=== PATIENT | male | born 1940 | race Two or more races ===

== ENCOUNTER 2016-09-22 16:10 | Emergency (ER) | payer MEDICARE, OTHER ==
[~2016-09-22] VITALS: Ht 177.8 cm; Wt 97.5 kg
[2016-09-22 16:35] VITALS: BP 212/83
[2016-09-22 17:14] LABS: BASOPHILS % (AUTO) 1.8 % (0.0-2.0); EOSINOPHILS % (AUTO) 5.9 % (0.0-3.0); LYMPHOCYTES % (AUTO) 27.9 % (20.0-45.0); MEAN CORPUSCULAR HEMOGLOBIN 31.4 PG (27.0-31.0); MEAN CORPUSCULAR HGB CONC 33.5 G/DL (32.0-36.0); MEAN CORPUSCULAR VOLUME 94 FL (80-99); MEAN PLATELET VOLUME 6.9 FL (6.5-10.1); MONOCYTES % (AUTO) 6.1 % (1.0-10.0); NEUTROPHILS % (AUTO) 58.3 % (45.0-75.0); PLATELET COUNT 240 K/UL (150-450); RED BLOOD COUNT 4.46 M/UL (4.70-6.10); RED CELL DISTRIBUTION WIDTH 12.2 % (11.6-14.8); WHITE BLOOD COUNT 9.6 K/UL (4.8-10.8)
[2016-09-22 17:32] LABS: TROPONIN I < 0.30 ng/mL (<=0.30)
[2016-09-22 17:44] LABS: ALANINE AMINOTRANSFERASE 14 U/L (3-41); ALBUMIN/GLOBULIN RATIO 1.2 (1.0-2.7); ANION GAP 14 (5-15); ASPARTATE AMINO TRANSFERASE 21 U/L (5-40); CARBON DIOXIDE 27 mEQ/L (20-30); CHLORIDE 96 mEQ/L (98-107); CREATININE 2.1 mg/dL (0.7-1.2); HEMOLYSIS 84; POTASSIUM 4.9 mEQ/L (3.4-4.9); SODIUM 137 mEQ/L (135-145); TOTAL PROTEIN 7.3 g/dL (6.6-8.7)
[2016-09-22 17:57] LABS: CKMB 3.3 ng/mL (< 6.7)
[2016-09-22 18:10] VITALS: BP 178/66
--- NOTE | 2016-09-22 19:02 | Emergency Room Report ---
History of Present Illness General Chief Complaint: Hypertension Source: Patient Present Illness HPI 75-year-old male presents to ED for evaluation. Referred from PMD office. Patient is here complaining of dizziness and headache for many weeks now. Blood pressure is high. Patient also feels weak. Denies chest pain or shortness of breath. Denies fevers or chills. Denies nausea or vomiting. Patient notes history of hypertension and states that his blood pressure tends to be high despite medication. States he is compliant with his medications. No other aggravating or relieving factors. Denies any other specific symptoms Patient History Past Medical History: HTN Past Surgical History: none Pertinent Family History: none Social History: Denies: alcohol use, drug use, smoking Immunizations: UTD Reviewed Nursing Documentation: PMH: Agreed, PSxH: Agreed Nursing Documentation-PM Past Medical History: No History, Except For Hx Hypertension: Yes Review of Systems All Other Systems: negative except mentioned in HPI Physical Exam Vital Signs Date Time Temp Pulse Resp B/P Pulse Ox O2 Delivery O2 Flow Rate FiO2 09/22/ 16:25 99.0 65 18 205/85 98 Room Air Sp02 EP Interpretation: reviewed, normal General Appearance: no apparent distress, alert, GCS 15, non-toxic Head: normocephalic, atraumatic Eyes: bilateral eye PERRL, bilateral eye normal inspection ENT: hearing grossly normal, normal pharynx, no angioedema, normal voice Neck: full range of motion, supple/symm/no masses Respiratory: chest non-tender, lungs clear, normal breath sounds, speaking full sentences Cardiovascular #1: regular rate, rhythm, no edema Cardiovascular #2: 2+ carotid (R), 2+ carotid (L), 2+ radial (R), 2+ radial (L) , 2+ dorsalis pedis (R), 2+ dorsalis pedis (L) Gastrointestinal: normal bowel sounds, non tender, soft, non-distended, no guarding, no rebound Rectal: deferred Genitourinary: normal inspection, no CVA tenderness Musculoskeletal: back normal, gait/station normal, normal range of motion, non- tender Neurologic: alert, oriented x3, responsive, motor strength/tone normal, sensory intact, speech normal Psychiatric: judgement/insight normal, memory normal, mood/affect normal, no suicidal/homicidal ideation Reflexes: 3+ bicep (R), 3+ bicep (L), 3+ tricep (R), 3+ tricep (L), 3+ knee (R) , 3+ knee (L) Skin: normal color, no rash, warm/dry, well hydrated Lymphatic: no adenopathy Medical Decision Making Diagnostic Impression: Primary Impression: Hypertension Qualified Codes: I10 - Essential (primary) hypertension Additional Impression: ARF (acute renal failure) Qualified Codes: N17.9 - Acute kidney failure, unspecified ER Course Hospital Course 75-year-old male presents ED complaining of dizziness, elevated BP Differential diagnoses include: MT/unstable angina, CVA/TIA, hypertensive urgency Clinical course Patient placed on stretcher. 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 After initial history and physical I ordered labs, EKG, chest x-ray, CT Head labs reviewed- no leukocytosis, hemoglobin/hematocrit stable, Cr 2.1, troponins negative. EKG - NSR, LVH, no acute changes Chest x-ray- unremarkable CT head negative Patient states he wishes to go home. Understands the risks of leaving. Patient has competency to make his own decisions. Signed AMA form. I. I feel this is a highly complex case requiring extensive working including EKG/Rhythm strip, Xray/CT/US, Blood/urine lab work, repeat exams while in ED, and administration of strong opiates/narcotics for pain control, admission to hospital or close patient follow up. Diagnosis - hypertensive urgency, ARF patient left AMA Labs Test 09/22/16 16:30 White Blood Count 9.6 K/UL (4.8-10.8) Red Blood Count 4.46 M/UL (4.70-6.10) Hemoglobin 14.0 G/DL (14.2-18.0) Hematocrit 41.8 % (42.0-52.0) Mean Corpuscular Volume 94 FL (80-99) Mean Corpuscular Hemoglobin 31.4 PG (27.0-31.0) Mean Corpuscular Hemoglobin Concent 33.5 G/DL (32.0-36.0) Red Cell Distribution Width 12.2 % (11.6-14.8) Platelet Count 240 K/UL (150-450) Mean Platelet Volume 6.9 FL (6.5-10.1) Neutrophils (%) (Auto) 58.3 % (45.0-75.0) Lymphocytes (%) (Auto) 27.9 % (20.0-45.0) Monocytes (%) (Auto) 6.1 % (1.0-10.0) Eosinophils (%) (Auto) 5.9 % (0.0-3.0) Basophils (%) (Auto) 1.8 % (0.0-2.0) Sodium Level 137 mEQ/L (135-145) Potassium Level 4.9 mEQ/L (3.4-4.9) Chloride Level 96 mEQ/L (98-107) Carbon Dioxide Level 27 mEQ/L (20-30) Anion Gap 14 (5-15) Blood Urea Nitrogen 22 mg/dL (7-23) Creatinine 2.1 mg/dL (0.7-1.2) Estimat Glomerular Filtration Rate mL/min (>60) Glucose Level 101 mg/dL (74-106) Calcium Level 9.0 mg/dL (8.6-10.2) Total Bilirubin 0.3 mg/dL (0.0-1.2) Aspartate Amino Transf (AST/SGOT) 21 U/L (5-40) Alanine Aminotransferase (ALT/SGPT) 14 U/L (3-41) Alkaline Phosphatase 74 U/L (40-129) Total Creatine Kinase 80 U/L (38-174) Creatine Kinase MB 3.3 ng/mL (< 6.7) Creatine Kinase MB Relative Index 4.1 Troponin I < 0.30 ng/mL (<=0.30) Total Protein 7.3 g/dL (6.6-8.7) Albumin 4.0 g/dL (3.5-5.2) Globulin 3.3 g/dL Albumin/Globulin Ratio 1.2 (1.0-2.7) EKG Diagnostic Results Rate: normal Rhythm: NSR ST Segments: other - LVH, twave inversions ASA given to the pt in ED: No Rhythm Strip Diag. Results EP Interpretation: yes Rhythm: NSR, no PVC's, no ectopy Chest X-Ray Diagnostic Results Chest X-Ray Ordered: Yes # of Views/Limited/Complete: 1 View Interpretation: no consolidation, no effusion, no pneumothorax, no acute cardiopulmonary disease Indication: Other - dizziness Impression: No acute disease Date Electronically Signed: Sep 22, 2016 Time Electronically Signed: 19:00 Interpreting ER Physician: Cas Garzon MD CT/MRI/US Diagnostic Results CT/MRI/US Diagnostic Results : Imaging Test Ordered: CT Head Impression no acute process Last Vital Signs Date Time Temp Pulse Resp B/P Pulse Ox O2 Delivery O2 Flow Rate FiO2 09/22/16 18:10 58 18 178/66 96 Room Air 09/22/16 16:35 98.5 Status: unchanged Disposition: AGAINST MEDICAL ADVICE Condition: Serious Referrals: NOT CHOSEN [facility]/,REFERRING (PCP) CAS GARZON M.D. Sep 22, 2016 19:02
--- NOTE | 2016-09-23 09:52 | Diagnostic Imaging Report ---
Indication: Shortness of breath, hypertension Technique: Single portable AP view of the chest. Findings: Comparison: None. Linear density left lung base. Right lung clear. Thoracic aorta mildly calcified and elongated. The bones and extra pulmonary soft tissues, remainder of the cardiomediastinal silhouette, pulmonary vasculature, and pleural surfaces are unremarkable. IMPRESSION: Minimal subsegmental atelectasis versus scarring left lung base Aortosclerosis otherwise negative.
== END 2016-09-22 18:10 | disposition left against medical advice (07) ==
LOC: EMR 17:02 → EDBEDREQ 17:47 → EMR 18:10
DX: I10 Essential (primary) hypertension (principal); N17.9 Acute kidney failure, unspecified; R51 Headache
CPT/HCPCS: 36415; 70450; 71010; 80053; 82550; 82553; 84484; 85025; 93005; 99284

== ENCOUNTER 2018-04-24 05:13 | Emergency (ER) | payer MEDICARE, OTHER ==
[~2018-04-24] VITALS: Ht 170.2 cm; Wt 93.0 kg
[2018-04-24] MEDS ORDERED: Norco 5mg/325mg tab ORAL ONE (05:30)
[2018-04-24 05:38] VITALS: BP 142/51
[2018-04-24] MEDS ORDERED: HYDROCODON-ACE1 EA15 ORAL (05:38)
[2018-04-24] MEDS ORDERED: IBUPROFEN600 MG ORAL (05:38)
--- NOTE | 2018-04-24 05:39 | Emergency Room Report ---
History of Present Illness General Chief Complaint: Upper Extremity Injury Source: Patient Present Illness [facility] This is a 77-year-old male who has a history of high blood pressure. He presents with chief complaint of left hand swollen. He was at [facility] days ago. He was therefore pedal edema. He had blood work done. When they removed the IV his left hand started swelling up. Since then it swollen and tender. Is also ecchymotic. Said he has hard time sleeping because of the pain. He took [id number] medicine is not helping. Denies any other trauma. No nausea no vomiting. Pain is 8 out of 10 pain. patient is taking aspirin Allergies: Coded Allergies: No Known Allergies (Unverified , 04/24/18) Patient History Past Medical History: see triage record, old chart reviewed, HTN Past Surgical History: other Pertinent Family History: none Social History: Denies: smoking Immunizations: other Reviewed Nursing Documentation: PMH: Agreed; PSxH: Agreed Nursing Documentation-PMH Past Medical History: No History, Except For Hx Hypertension: Yes Review of Systems Eye: Denies: eye pain, blurred vision ENT: Denies: ear pain, nose congestion, throat swelling Respiratory: Denies: cough, shortness of breath Cardiovascular: Denies: chest pain, palpitations Gastrointestinal: Denies: abdominal pain, diarrhea, nausea, vomiting Musculoskeletal: Reports: muscle pain; Denies: back pain, joint pain Skin: Denies: rash Neurological: Denies: headache, numbness Endocrine: Denies: increased thirst, increased urine Hematologic/Lymphatic: Denies: easy bruising All Other Systems: negative except mentioned in HPI Physical Exam Vital Signs Date Time Temp Pulse Resp B/P (MAP) Pulse Ox O2 Delivery O2 Flow Rate FiO2 04/24/18 05:17 97.9 61 19 140/61 95 Room Air vital signs unremarkable Sp02 EP Interpretation: reviewed, normal General Appearance: well appearing, no apparent distress, alert Head: normocephalic, atraumatic Eyes: bilateral eye PERRL, bilateral eye EOMI ENT: hearing grossly normal, normal pharynx Neck: full range of motion, supple, no meningismus Respiratory: chest non-tender, lungs clear, normal breath sounds Cardiovascular #1: regular rate, rhythm, no murmur Gastrointestinal: normal bowel sounds, non tender, no mass, no organomegaly, no bruit, non-distended Musculoskeletal: back normal, gait/station normal, normal range of motion, other - Left hand: There is diffuse ecchymosis on the dorsum of the hand. There is some edema. Pulses normal. Full range of motion of MCP, PE, and DIP joints of the fingers. No crepitance. Neurologic: alert, oriented x3 Psychiatric: mood/affect normal Skin: warm/dry Medical Decision Making Diagnostic Impression: Primary Impression: Traumatic ecchymosis of left hand Qualified Codes: S60.222A - Contusion of left hand, initial encounter Additional Impression: Extravasation of blood ER Course Patient presents with ecchymosis secondary to extravasation of blood from IV site. There is no fracture or dislocation. No crepitance. No septic joint. No evidence of necrotizing fasciitis. I see no need for x-rays since there was no trauma and symptoms started after IV removal. We'll treat symptomatically. Last Vital Signs Date Time Temp Pulse Resp B/P (MAP) Pulse Ox O2 Delivery O2 Flow Rate FiO2 04/24/18 05:17 97.9 61 19 140/61 95 Room Air Status: unchanged Disposition: HOME, SELF-CARE Condition: Stable Scripts Ibuprofen* (MOTRIN*) 600 Mg Tablet 600 MG ORAL THREE TIMES A DAY, #30 TAB 0 Refills Prov: Jakub Lamar MD 04/24/18 Hydrocodone/Acetaminophen 5-325* (HYDROCODONE/ACETAMINOPHEN 5-325*) 1 Each Tablet 1 TAB ORAL Q6H PRN for For Pain, #15 TAB 0 Refills Prov: Jakub Lamar MD 04/24/18 Referrals: NOT CHOSEN [facility]/,REFERRING (PCP) Additional Instructions: Elevate your hand. Ice pack to the area. Hold your aspirin for a week. Return if symptom worsen. Follow-up with your doctor in 7 days. Jakub Lamar MD Apr 24, 2018 05:38
[2018-04-24 05:43] VITALS: BP 125/74
== END 2018-04-24 05:52 | disposition home or self-care (01) ==
LOC: EMR 05:30 → EDUNIT# 05:30 → EMR 05:52
DX: S60.222A Contusion of left hand, initial encounter (principal); X58.XXXA Exposure to other specified factors, initial encounter; Y92.89 Other specified places as the place of occurrence of the external cause; I10 Essential (primary) hypertension; R58 Hemorrhage, not elsewhere classified
CPT/HCPCS: 99282